=== PATIENT | male | born 2000 | race Caucasian/White ===

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

== ENCOUNTER 2019-08-10 00:36 | Emergency (ER) | payer BC ==
[2019-08-10] MEDS ORDERED: Ibuprofen TAB* 800 MG PO ONE (01:06)
--- NOTE | 2019-08-10 01:18 | ED ---
Influenza-Like Illness - HPI Summary HPI Summary: 19 year old male presents with fever for the past couple days. He states his had occasional cough. cough got worst today. He was seen yesterday at urgent care and had negative strep and flu. He states his symptoms have persisted. Has been taking NyQuil and Aleve with minimal relief. He admits occasional sore throat. Denies any sinus congestion. Admits to headache. No neck stiffness. No bowel pain. no n/v. did have some diarrhea. Has not had much appetite. Denies any urinary symptoms. Has no medical conditions. Friend is sick with the flu and another with pneumonia. He is not a smoker. Denies drug use. he has been tolerated PO. - History of Current Complaint Chief Complaint: EDFluSymptoms Time Seen by Provider: 08/10/19 00:54 - Allergy/Home Medications Allergies/Adverse Reactions: Allergies Allergy/AdvReac Type Severity Reaction Status Date / Time cefprozil [From Cefzil] Allergy Severe Hives Verified 10/29/18 18:29 Home Medications: Home Medications NK [No Home Medications Reported] 08/10/19 [History Confirmed 08/10/19] PMH/Surg Hx/FS Hx/Imm Hx Endocrine/Hematology History: Denies: Hx Anticoagulant Therapy Respiratory History: Denies: Hx Asthma GI History: Reports: Other GI Disorders - ingunial hernia repair History: Denies: Hx Dialysis Musculoskeletal History: Denies: Hx Arthritis, Hx Osteoporosis Sensory History: Reports: Hx Contacts or Glasses Denies: Hx Deafness, Hx Hearing Aid Opthamlomology History: Reports: Hx Contacts or Glasses Neurological History: Denies: Hx Dementia Psychiatric History: Denies: Hx Autism - Surgical History Surgery Procedure, Year, and Place: Ingunial hernia repair 2010 Hx Anesthesia Reactions: No - Immunization History Date of Influenza Vaccine: never Infectious Disease History: No Infectious Disease History: Denies: Traveled Outside the [place] in Last 30 Days - Family History Known Family History: Negative: Blood Disorder - Social History Alcohol Use: Occasionally Alcohol Amount: 1-2x week Substance Use Type: Reports: None Smoking Status (MU): Never Smoked Tobacco Review of Systems Positive: Fever Positive: Nasal Discharge. Negative: Sore Throat Negative: Chest Pain Positive: Shortness Of Breath, Cough Negative: Abdominal Pain All Other Systems Reviewed And Are Negative: Yes Physical Exam Triage Information Reviewed: Yes Vital Signs On Initial Exam: Initial Vitals Temp Pulse Resp BP Pulse Ox 101.4 F 148 20 115/92 97 08/10/19 00:38 08/10/19 00:38 08/10/19 00:38 08/10/19 00:38 08/10/19 00:38 Vital Signs Reviewed: Yes Appearance: Positive: Ill-Appearing - nontoxic Skin: Positive: Warm, Dry Head/Face: Positive: Normal Head/Face Inspection Eyes: Positive: Normal, EOMI, ALEX, Conjunctiva Clear ENT: Positive: Pharynx normal, TMs normal Neck: Positive: Supple, Nontender, No Lymphadenopathy. Negative: Nuchal Rigidity Respiratory/Lung Sounds: Positive: Clear to Auscultation, Breath Sounds Present Cardiovascular: Positive: Normal, RRR Abdomen Description: Positive: Nontender, Soft Bowel Sounds: Positive: Present Musculoskeletal: Positive: Normal Neurological: Positive: Normal Psychiatric: Positive: Normal Procedures - Sedation Patient Received Moderate/Deep Sedation with Procedure: No Diagnostics - Vital Signs Vital Signs Temp Pulse Resp BP Pulse Ox 08/10/19 00:38 101.4 F 148 20 115/92 97 - Laboratory Lab Statement: Any lab studies that have been ordered have been reviewed, and results considered in the medical decision making process. - Radiology chest Radiology Interpretation Completed By: ED Physician Summary of Radiographic Findings: no pneumonia Flu Symptom Course/Dx - Course Course Of Treatment: 19 year old male presents with fever for the past couple days. He states his had occasional cough. cough got worst today. He was seen yesterday at urgent care and had negative strep and flu. He states his symptoms have persisted. Has been taking NyQuil and Aleve with minimal relief. He admits occasional sore throat. Denies any sinus congestion. Admits to headache. No neck stiffness. No bowel pain. no n/v. did have some diarrhea. Has not had much appetite. Denies any urinary symptoms. Has no medical conditions. Friend is sick with the flu and another with pneumonia. He is not a smoker. Denies drug use. On exam appears ill but nontoxic. febrile here. Gave dose ibuprofen. Lungs are clear to auscultation. pharynx normal. Chest x- ray shows no pneumonia. We'll treat as viral syndrome. Told to continue taking Tylenol and ibuprofen. Patient understands and agrees with plan. - Diagnoses Differential Diagnosis/HQI/PQRI: Positive: Bronchitis, Influenza, Pneumonia Provider Diagnoses: Fever, Cough Discharge ED - Sign-Out/Discharge Documenting (check all that apply): Patient Departure - Discharge Plan Condition: Good Disposition: HOME Patient Education Materials: Viral Syndrome (ED) Referrals: No Primary Care Phys,NOPCP [Primary Care Provider] - Additional Instructions: Take Tylenol and ibuprofen for muscle aches and fever every 6 hours Drink plenty of fluids Follow up with primary within 5 days Return to ED if develop any new or worsening symptoms - Billing Disposition and Condition Condition: GOOD Disposition: Home
[2019-08-10 02:23] VITALS: BP 115/78
== END 2019-08-10 02:22 | disposition home or self-care (01) ==
LOC: ED 00:36
DX: R50.9 Fever, unspecified (principal); R05 Cough; Z88.1 Allergy status to other antibiotic agents
CPT/HCPCS: 71046; 99282; A9270-GY